=== PATIENT | male | born 1945 | race Hispanic/Latino ===

== ENCOUNTER 2017-10-02 06:12 | Observation (INO) | payer OTHER ==
[2017-09-30 09:00] VITALS: BP 106/65
[2017-09-30 09:29] LABS: BASOPHILS % (AUTO) 0.5 % (0.0-5.0); EOSINOPHILS % (AUTO) 0.1 % (0.0-8.0); HEMATOCRIT 36.2 % (42-54); LYMPHOCYTES % (AUTO) 22.2 % (21.0-51.0); MEAN CORPUSCULAR HEMOGLOBIN 27.8 pg (27.0-33.0); MEAN CORPUSCULAR HGB CONC 32.9 g/dL (32.0-36.0); MEAN CORPUSCULAR VOLUME 84.5 fL (79-99); MONOCYTES % (AUTO) 22.3 % (3.0-13.0); NEUTROPHILS % (AUTO) 54.9 % (40.0-77.0); NUCLEATED RED BLOOD CELLS 0.1 % (0.0-0.19); PLATELET COUNT (AUTO) 194 K/uL (130-400); RED BLOOD CELL COUNT(AUTO) 4.28 MIL/uL (4.50-6.20); RED CELL DISTRIBUTION WIDTH 15.8 % (11.0-15.5); WHITE BLOOD COUNT (AUTO) 5.6 K/uL (4.8-10.8)
[2017-09-30 09:55] LABS: CREATININE 1.8 mg/dL (0.5-1.5); POTASSIUM 3.7 mmol/L (3.5-5.1)
[2017-09-30 10:00] LABS: INR 1.11 (0.85-1.15); PARTIAL THROMBOPLASTIN TIME 30.4 SEC (26.3-35.5); PROTHROMBIN TIME 11.6 SEC (9.6-11.6)
[2017-10-02] VITALS (13 sets, daily range): BP systolic 93–115; BP diastolic 60–69
[~2017-10-02] VITALS: Ht 166.4 cm; Wt 57.2 kg
[2017-10-02] MEDS: CEFAZOLIN SODIUM 1 GM VIAL IVP SCH (05:00)
[~2017-10-02 06:12] MED LIST: AMIO400T PO; CARV6.25 PO; DIGO125T87 PO; FURO40TA5 PO; LEVO50TA11 PO; LISI2.5T2 PO; METO2.5T2 PO; POTA-79 PO; RIVA15TA PO; SPIR25TA6 PO
[2017-10-02] MEDS ORDERED: SODIUM CHLORIDE 0.9% 1000ML 1,000 ML IV ONE (07:16)
[2017-10-02] MEDS ORDERED: BUPIVACAINE/PF 0.25% 30ML VIAL IJ ONE (07:24)
[2017-10-02] MEDS ORDERED: LIDOCAINE HCL 1% MDV 50ML VIAL ONE (07:24)
[2017-10-02] MEDS ORDERED: CEFAZOLIN SODIUM 1 GM VIAL ONE (07:24)
[2017-10-02] MEDS ORDERED: ISOVUE-300 100 ML VIAL IV ONE (07:41)
[2017-10-02] MEDS ORDERED: MEPERIDINE-PF 25 MG/ML SYG ONE ×5 (07:50→08:39)
[2017-10-02] MEDS ORDERED: MIDAZOLAM HCL 1 MG/ML 2ML VIAL ONE ×3 (07:51→08:15)
[2017-10-02] MEDS ORDERED: ACETAMINOPHEN 325 MG TAB PO PRN (10:00)
[2017-10-02] MEDS ORDERED: ACETAMINOPHEN-CODEINE 300/30MG TAB PO PRN ×2 (10:00)
[2017-10-02] MEDS: LISINOPRIL 2.5 MG TABLET PO SCH (14:22)
[2017-10-02] MEDS: POTASSIUM CHLORIDE 20 MEQ ERTAB PO SCH (17:36)
[2017-10-02] MEDS: CARVEDILOL 6.25 MG TABLET PO SCH (21:00)
[2017-10-02] MEDS: FUROSEMIDE 40 MG TABLET PO SCH (21:19)
[2017-10-03] VITALS (8 sets, daily range): BP systolic 100–121; BP diastolic 60–74
[2017-10-03 04:34] LABS: CREATININE 1.9 mg/dL (0.5-1.5); POTASSIUM 3.5 mmol/L (3.5-5.1)
[2017-10-03] MEDS: CEFAZOLIN SODIUM 1 GM VIAL IVP SCH (05:00)
[2017-10-03] MEDS: LISINOPRIL 2.5 MG TABLET PO SCH (08:58)
[2017-10-03] MEDS: FUROSEMIDE 40 MG TABLET PO SCH ×2 (08:58→20:42)
[2017-10-03] MEDS: POTASSIUM CHLORIDE 20 MEQ ERTAB PO SCH ×2 (08:59→16:25)
[2017-10-03] MEDS: CARVEDILOL 6.25 MG TABLET PO SCH ×2 (08:59→20:43)
[2017-10-03] MEDS ORDERED: LEVOTHYROXINE 50 MCG TABLET PO SCH (09:00)
[2017-10-03] MEDS ORDERED: METOLAZONE 2.5 MG TABLET PO SCH (09:00)
[2017-10-03] MEDS ORDERED: DIGOXIN 125 MCG TABLET PO SCH (09:00)
[2017-10-03] MEDS ORDERED: AMIODARONE HCL 200 MG TABLET PO SCH (09:00)
[2017-10-03] MEDS ORDERED: SPIRONOLACTONE 25 MG TAB PO SCH (09:00)
[2017-10-03] MEDS ORDERED: FUROSEMIDE 10 MG/ML 2ML VIAL IV SCH (09:00)
[2017-10-03] MEDS ORDERED: FUROSEMIDE 10 MG/ML 4ML VIAL ONE (16:23)
[2017-10-04 03:28] VITALS: BP 99/61
[2017-10-04 03:29] VITALS: BP 99/61
[2017-10-04 03:30] VITALS: BP 96/62
[2017-10-04 04:04] LABS: CREATININE 1.8 mg/dL (0.5-1.5); POTASSIUM 3.3 mmol/L (3.5-5.1)
[2017-10-04] MEDS: CEFAZOLIN SODIUM 1 GM VIAL IVP SCH (04:29)
[2017-10-04 07:56] VITALS: BP 104/62
[2017-10-04] MEDS ORDERED: RIVAROXABAN 10 MG TABLET PO SCH (09:00)
[2017-10-05] MEDS ORDERED: LEVOTHYROXINE 50 MCG TABLET PO SCH (06:30)
== END 2017-10-04 10:50 | disposition home or self-care (01) ==
LOC: DAH 06:12 → 2AH 06:13 → INTOOBSV 06:13
PROVIDERS: ADMIT Internal Medicine; ATTEND Internal Medicine Cardiovascular Disease
DX: I13.0 Hypertensive heart and chronic kidney disease with heart failure and stage 1 through stage 4 chronic kidney disease, or unspecified chronic kidney disease (principal); I50.43 Acute on chronic combined systolic (congestive) and diastolic (congestive) heart failure; E46 Unspecified protein-calorie malnutrition; I42.9 Cardiomyopathy, unspecified; N18.4 Chronic kidney disease, stage 4 (severe); I48.0 Paroxysmal atrial fibrillation; E03.9 Hypothyroidism, unspecified; J44.9 Chronic obstructive pulmonary disease, unspecified; I48.92 Unspecified atrial flutter; D68.59 Other primary thrombophilia; Z87.891 Personal history of nicotine dependence; Z95.810 Presence of automatic (implantable) cardiac defibrillator; Z79.01 Long term (current) use of anticoagulants; Z79.899 Other long term (current) drug therapy
CPT/HCPCS: 33225; 33264; 36415 ×3; 71045; 80048 ×3; 83880; 85025; 85610; 85730; 96374; 96375; A4218 ×2; A4510; A4606; C1769; C1882; C1900; G0378 ×53; J0690 ×3; J1940; J2175 ×5; J2250 ×3; J3490 ×2; J7030; Q9967; 99152; 99153